=== PATIENT | female | born 2000 | race Caucasian/White ===

== ENCOUNTER 2020-04-01 20:23 | Inpatient (IN) | payer OTHER, MEDICAID ==
[~2020-04-01] VITALS: Ht 154.9 cm; Wt 63.6 kg
[2020-04-01] MEDS ORDERED: SODIUM CHLORIDE 0.9% 1,000 ML IVB ONE (20:44)
[2020-04-01] MEDS ORDERED: ONDANSETRON HCL 4 MG/2 ML VIAL IV ONE (20:45)
[2020-04-01] MEDS ORDERED: InsuLIN REG 1unit/0.01ml Soln (100units/ml) IV ONE (20:45)
[2020-04-01 21:03] LABS: Urine Bacteria FEW /hpf (None Seen); Urine Blood Negative /uL (Negative); Urine Mucus FEW (None Seen); Urine Specific Gravity 1.017 (1.001-1.035); Urine WBC 18 /hpf (0 - 5)
[2020-04-01 21:06] LABS: Basophils # (auto) 0.1 10 ^3/uL (0-0.2); Eosinophils # (auto) 0 10 ^3/uL (0-0.8); Monocytes # (auto) 0.4 10 ^3/uL (0-1.3)
[2020-04-01 21:08] LABS: Basophils % (auto) 0.9 % (0.0-2.0); Hematocrit 43.6 % (36.0-46.0); Mean Corpuscular Hgb Conc. 29.8 g/dL (32.0-36.0); Mean Corpuscular Volume 83.9 fL (80.0-100.0); Monocytes % (auto) 2.8 % (0.0-12.0); Neutrophils # (auto) 12.3 10 ^3/uL (1.6-8.6); Neutrophils % (auto) 89.3 % (37.0-80.0); Nucleated Red Blood Cells % 0.1 %; Platelet Count (auto) 275 10^3/uL (140-450); Red Blood Cells 5.19 10^6/uL (4.0-5.20); Red Cell Distribution Width 16.4 % (11.8-14.3); White Blood Cell 13.8 10^3/uL (4.4-10.8)
[2020-04-01] MEDS ORDERED: SODIUM BICARBONATE 8.4 % INJ 50ML VIAL IV ONE (21:15)
[2020-04-01] MEDS ORDERED: SODIUM BICARBONATE 50ML VIAL 50 ML in SOD CHL 0.45% 1,000 ML IV ONE (21:15)
[2020-04-01 21:22] LABS: INR 0.97 (0.9-1.15); Partial Thromboplastin Time 25.5 sec (23.64-32.05)
[2020-04-01 21:25] LABS: Alanine Aminotransferase 25 U/L (13-56); Albumin 3.8 g/dL (3.4-5.0); Amylase 41 U/L (25-115); Anion Gap 25 (5-15); Aspartate Aminotransferase 20 U/L (15-37); Calcium 9.1 mg/dL (8.5-10.1); Chloride 97 mmol/L (98-107); Lipase 31 U/L (73-393); Magnesium 2.4 mg/dL (1.6-2.6); Potassium 5.5 mmol/L (3.5-5.1); Sodium 129 mmol/L (136-145)
[2020-04-01 21:31] LABS: Alkaline Phosphatase 139 U/L (45-117); BUN/Creatinine Ratio 20.3; Bilirubin, Total 0.4 mg/dL (0.2-1.0); Blood Urea Nitrogen 24 mg/dL (7-18); GFR African American 76 mL/min; GFR Non-African American 63 mL/min
[2020-04-01] MEDS ORDERED: SODIUM CHLORIDE 0.9% 1,000 ML IV ONE (21:45)
[2020-04-01] MEDS ORDERED: cefTRIAXone 1GM/50ML D5W 50 ML IV ONE (21:45)
[2020-04-01 21:48] LABS: Carbon Dioxide 7 mmol/L (21-32)
[2020-04-01 21:49] LABS: Glucose 759 mg/dL (74-106)
[2020-04-01] MEDS ORDERED: InsuLIN R (HUMAN) 100 UNITS in SODIUM CHL 0.9% 99 ML IV SCH (22:12)
[2020-04-01] MEDS ORDERED: D5W/SOD CHL 0.45%/KCL 20MEQ 1,000 ML IV SCH (22:12)
[2020-04-01] MEDS ORDERED: SODIUM CHLORIDE 0.9% 1,000 ML IV SCH (22:12)
[2020-04-01 22:30] LABS: Lactic Acid w/Reflex 4.2 mmol/L (0.4-2.0)
[2020-04-01] MEDS: ACCU-CHEK COMFORT CURVE STRIP VI SCH ×2 (22:53→23:36)
[2020-04-02] MEDS ORDERED: NITROGLYCERIN 0.4 MG SL TAB SL PRN (00:15)
[2020-04-02] MEDS ORDERED: ONDANSETRON HCL 4 MG/2 ML VIAL IV PRN (00:15)
[2020-04-02] MEDS ORDERED: MORPHINE SULF INJ 2 MG/ML SYRINGE 1ML IV PRN (00:15)
[2020-04-02 01:02] LABS: Calcium 8.1 mg/dL (8.5-10.1); Potassium 3.6 mmol/L (3.5-5.1)
[2020-04-02 01:04] LABS: BUN/Creatinine Ratio 22.8
[2020-04-02] MEDS: ACCU-CHEK COMFORT CURVE STRIP VI SCH ×8 (01:05→21:34)
[2020-04-02] MEDS ORDERED: SODIUM CHLORIDE 0.9% 1,000 ML IV SCH ×3 (02:12→07:45)
[2020-04-02] MEDS ORDERED: ONDANSETRON HCL 4 MG/2 ML VIAL IV ONE (03:45)
[2020-04-02 07:26] LABS: BUN/Creatinine Ratio 21.4; Calcium 7.9 mg/dL (8.5-10.1); Potassium 3.8 mmol/L (3.5-5.1)
[2020-04-02] MEDS ORDERED: DEXTROSE (50%) 50ML SYRG IV PRN (07:45)
[2020-04-02] MEDS: InsuLIN REG 1unit/0.01ml Soln (100units/ml) SC SCH ×4 (08:06→21:35)
[2020-04-02 10:04] VITALS: BP 110/65
[2020-04-02 12:37] LABS: BUN/Creatinine Ratio 16.7; Calcium 8.3 mg/dL (8.5-10.1); Potassium 4.4 mmol/L (3.5-5.1)
[2020-04-02 12:39] LABS: Magnesium 2.4 mg/dL (1.6-2.6); Phosphorus 3.9 mg/dL (2.5-4.90)
[2020-04-02 13:00] VITALS: BP 110/54
[2020-04-02 13:19] LABS: Basophils # (auto) 0 10 ^3/uL (0-0.2); Eosinophils # (auto) 0 10 ^3/uL (0-0.8); Mean Corpuscular Hgb Conc. 31.2 g/dL (32.0-36.0); Monocytes # (auto) 0.9 10 ^3/uL (0-1.3); Neutrophils % (auto) 76.2 % (37.0-80.0)
[2020-04-02 13:22] LABS: Basophils % (auto) 0.2 % (0.0-2.0); Eosinophils % (auto) 0.1 % (0.0-7.0); Hematocrit 39.2 % (36.0-46.0); Hemoglobin 12.2 g/dL (12.2-16.2); Lymphocytes # (auto) 2.4 10 ^3/uL (0.4-5.4); Lymphocytes % (auto) 17.2 % (10.0-50.0); Mean Corpuscular Hemoglobin 24.7 pg (28.0-32.0); Mean Corpuscular Volume 79.1 fL (80.0-100.0); Monocytes % (auto) 6.3 % (0.0-12.0); Neutrophils # (auto) 10.7 10 ^3/uL (1.6-8.6); Platelet Count (auto) 299 10^3/uL (140-450); Red Blood Cells 4.96 10^6/uL (4.0-5.20); Red Cell Distribution Width 16.5 % (11.8-14.3)
[2020-04-02 15:45] LABS: BUN/Creatinine Ratio 14.7; Calcium 8.3 mg/dL (8.5-10.1); Potassium 4.5 mmol/L (3.5-5.1)
[2020-04-02 16:41] VITALS: BP 107/63
[2020-04-02] MEDS: SODIUM CHLORIDE 0.9% 1,000 ML IV SCH (17:02)
[2020-04-02] MEDS: INSULIN 70/30 1unit/0.01ml Susp (100units/ml) SC SCH (17:49)
[2020-04-02 18:09] LABS: Calcium 7.9 mg/dL (8.5-10.1)
[2020-04-02 18:12] LABS: BUN/Creatinine Ratio 14.7
[2020-04-02 21:48] VITALS: BP 124/66
[2020-04-03] MEDS: InsuLIN REG 1unit/0.01ml Soln (100units/ml) SC SCH ×4 (00:31→11:45)
[2020-04-03] MEDS: ACCU-CHEK COMFORT CURVE STRIP VI SCH ×4 (00:46→11:44)
[2020-04-03] MEDS: SODIUM CHLORIDE 0.9% 1,000 ML IV SCH ×2 (00:47→05:31)
[2020-04-03 05:20] VITALS: BP 105/57
[2020-04-03 06:04] LABS: Basophils # (auto) 0 10 ^3/uL (0-0.2); Eosinophils # (auto) 0.1 10 ^3/uL (0-0.8); Hemoglobin 11.6 g/dL (12.2-16.2); Monocytes # (auto) 0.5 10 ^3/uL (0-1.3); Nucleated Red Blood Cells % 0.1 %
[2020-04-03 06:07] LABS: Basophils % (auto) 0.4 % (0.0-2.0); Eosinophils % (auto) 0.9 % (0.0-7.0); Hematocrit 35.6 % (36.0-46.0); Lymphocytes # (auto) 2.5 10 ^3/uL (0.4-5.4); Lymphocytes % (auto) 44.4 % (10.0-50.0); Mean Corpuscular Hemoglobin 25.3 pg (28.0-32.0); Mean Corpuscular Hgb Conc. 32.6 g/dL (32.0-36.0); Mean Corpuscular Volume 77.8 fL (80.0-100.0); Neutrophils # (auto) 2.6 10 ^3/uL (1.6-8.6); Neutrophils % (auto) 46.3 % (37.0-80.0); Platelet Count (auto) 247 10^3/uL (140-450); Red Blood Cells 4.58 10^6/uL (4.0-5.20); Red Cell Distribution Width 16.5 % (11.8-14.3); White Blood Cell 5.7 10^3/uL (4.4-10.8)
[2020-04-03 06:27] LABS: Albumin 2.7 g/dL (3.4-5.0); BUN/Creatinine Ratio 14.3; Calcium 7.7 mg/dL (8.5-10.1); Potassium 3.4 mmol/L (3.5-5.1)
[2020-04-03 06:30] LABS: Bilirubin, Total 0.2 mg/dL (0.2-1.0)
[2020-04-03] MEDS: INSULIN 70/30 1unit/0.01ml Susp (100units/ml) SC SCH (08:00)
[2020-04-03 09:00] VITALS: BP 121/74
[2020-04-03] MEDS ORDERED: POTASSIUM CHL 20 Meq TABLET PO ONE (10:30)
[2020-04-03 13:00] VITALS: BP 102/64
== END 2020-04-03 15:00 | disposition home or self-care (01) | DRG 420 ==
LOC: EDBD 20:23 → ER 20:28 → TELE 20:29 → TELE-WESTW 04-02 09:26
PROVIDERS: ADMIT Nurse Practitioner; ATTEND Internal Medicine
DX: E10.10 Type 1 diabetes mellitus with ketoacidosis without coma (principal); E44.0 Moderate protein-calorie malnutrition; E86.0 Dehydration; N39.0 Urinary tract infection, site not specified; D72.829 Elevated white blood cell count, unspecified; Z96.41 Presence of insulin pump (external) (internal); Z88.1 Allergy status to other antibiotic agents
CPT/HCPCS: 36415; 36600; 74176; 76775; 80048; 80053; 81001; 82010; 82150; 82805; 82962; 83036; 83605; 83690; 83735; 84100; 84484; 84702; 85025; 85610; 85730; 87086; 93005; 96361; 96365; 96366; 96368; 96375; 96376; 99291; G0378; J0696; J1815; J2405

== ENCOUNTER 2021-07-22 14:03 | Inpatient (IN) | payer MEDICAID, OTHER ==
[~2021-07-22] VITALS: Ht 154.9 cm; Wt 54.0 kg
[2021-07-22] MEDS ORDERED: DEXTROSE (50%) 50ML SYRG IV PRN (14:30)
[2021-07-22] MEDS ORDERED: InsuLIN REG 1unit/0.01ml Soln (100units/ml) IV ONE (14:30)
[2021-07-22] MEDS ORDERED: SODIUM CHLORIDE 0.9% 1,000 ML IV ONE (14:30)
[2021-07-22] MEDS ORDERED: InsuLIN R (HUMAN) 100 UNITS in SODIUM CHL 0.9% 99 ML IV SCH (14:30)
[2021-07-22] MEDS ORDERED: INSULIN LANTUS (GLARGINE) 1 /0.01ml (100units/ml) SC ONE (14:30)
[2021-07-22 14:53] LABS: Eosinophils # (auto) 0 10 ^3/uL (0-0.8); Eosinophils % (auto) 0.2 % (0.0-7.0); Red Cell Distribution Width 14.1 % (11.8-14.3); White Blood Cell 7.5 10^3/uL (4.4-10.8)
[2021-07-22 14:56] LABS: Basophils # (auto) 0 10 ^3/uL (0-0.2); Basophils % (auto) 0.6 % (0.0-2.0); Hematocrit 35.7 % (36.0-46.0); Hemoglobin 11.9 g/dL (12.2-16.2); Lymphocytes # (auto) 1.3 10 ^3/uL (0.4-5.4); Lymphocytes % (auto) 17.7 % (10.0-50.0); Mean Corpuscular Hemoglobin 28.5 pg (28.0-32.0); Mean Corpuscular Hgb Conc. 33.2 g/dL (32.0-36.0); Mean Corpuscular Volume 85.9 fL (80.0-100.0); Monocytes # (auto) 0.3 10 ^3/uL (0-1.3); Monocytes % (auto) 4.3 % (0.0-12.0); Neutrophils # (auto) 5.8 10 ^3/uL (1.6-8.6); Neutrophils % (auto) 77.2 % (37.0-80.0); Red Blood Cells 4.15 10^6/uL (4.0-5.20)
[2021-07-22 15:08] LABS: Albumin 2.6 g/dL (3.4-5.0); Calcium 8.5 mg/dL (8.5-10.1); Potassium 4.4 mmol/L (3.5-5.1)
[2021-07-22 15:16] LABS: Bilirubin, Total 0.3 mg/dL (0.2-1.0); Total Protein 7.5 g/dL (6.4-8.2)
[2021-07-22] MEDS ORDERED: ONDANSETRON HCL 4 MG/2 ML VIAL IV ONE (16:15)
[2021-07-22] MEDS: ACCU-CHEK COMFORT CURVE STRIP VI SCH ×6 (16:30→22:39)
[2021-07-22] MEDS ORDERED: MORPHINE SULFATE INJECTION 2 MG/ML SYRG IV PRN (23:00)
[2021-07-22] MEDS ORDERED: MORPHINE SULFATE 4 MG/ML SYR/VIAL IV PRN (23:00)
[2021-07-22] MEDS ORDERED: NITROGLYCERIN 0.4 MG SL TAB SL PRN (23:00)
[2021-07-22] MEDS ORDERED: ONDANSETRON HCL 4 MG/2 ML VIAL IV PRN (23:00)
[2021-07-22] MEDS: D5W/SOD CHLO 0.9% 1,000 ML IV SCH (23:00)
[2021-07-23 00:04] LABS: BUN/Creatinine Ratio 8.1; Calcium 7.9 mg/dL (8.5-10.1); Potassium 3.3 mmol/L (3.5-5.1)
[2021-07-23] MEDS: ACCU-CHEK COMFORT CURVE STRIP VI SCH ×10 (00:19→16:24)
[2021-07-23] MEDS ORDERED: POTASSIUM CHL 20MEQ/100ML 100 ML IV ONE (01:00)
[2021-07-23] MEDS: D5W/SOD CHLO 0.9% 1,000 ML IV SCH (01:06)
[2021-07-23 02:33] LABS: Calcium 7.8 mg/dL (8.5-10.1); Potassium 3.2 mmol/L (3.5-5.1)
[2021-07-23 02:36] LABS: BUN/Creatinine Ratio 8.6
[2021-07-23 07:03] LABS: Potassium 3.8 mmol/L (3.5-5.1)
[2021-07-23 07:07] LABS: BUN/Creatinine Ratio 7.7; Calcium 8.2 mg/dL (8.5-10.1)
[2021-07-23] MEDS ORDERED: INSULIN LANTUS (GLARGINE) 1 /0.01ml (100units/ml) SC SCH (10:00)
[2021-07-23 10:56] LABS: Calcium 8.4 mg/dL (8.5-10.1); Potassium 3.6 mmol/L (3.5-5.1)
[2021-07-23 11:00] LABS: BUN/Creatinine Ratio 8.3
[2021-07-23] MEDS ORDERED: DEXTROSE (50%) 50ML SYRG IV PRN (11:15)
[2021-07-23] MEDS: InsuLIN REG 1unit/0.01ml Soln (100units/ml) SC SCH ×2 (12:00→16:25)
[2021-07-23] MEDS ORDERED: INSLANTI SC ×2 (13:04→18:11)
[2021-07-23] MEDS ORDERED: INSLISPI SC (13:04)
[2021-07-23 14:25] LABS: BUN/Creatinine Ratio 7.1; Calcium 8.3 mg/dL (8.5-10.1); Potassium 3.8 mmol/L (3.5-5.1)
[2021-07-23 17:18] VITALS: BP 108/64
[2021-07-23] MEDS ORDERED: INSU100I4 SC (18:11)
[2021-07-23] MEDS ORDERED: BLOO-200 XX (18:15)
[2021-07-23] MEDS ORDERED: [UNRECOGNIZED DRUG - CODE] XX (18:15)
[2021-07-23 18:37] LABS: BUN/Creatinine Ratio 9.3; Calcium 8.5 mg/dL (8.5-10.1); Potassium 3.5 mmol/L (3.5-5.1)
[2021-07-23] MEDS ORDERED: SODIUM CHLORIDE 0.9% 1,000 ML IV SCH (23:00)
[2021-07-24] MEDS ORDERED: INSULIN LANTUS (GLARGINE) 1 /0.01ml (100units/ml) SC SCH (10:00)
== END 2021-07-23 21:02 | disposition home or self-care (01) | DRG 420 ==
LOC: ER 14:03 → EDBD 14:03 → TELE 22:48 → CENTRAL 07-23 12:40
PROVIDERS: ADMIT Nurse Practitioner Family; ATTEND Nurse Practitioner Family
DX: E10.10 Type 1 diabetes mellitus with ketoacidosis without coma (principal); K52.9 Noninfective gastroenteritis and colitis, unspecified; Z20.822 Contact with and (suspected) exposure to COVID-19; Z79.4 Long term (current) use of insulin; Z88.1 Allergy status to other antibiotic agents; Z80.9 Family history of malignant neoplasm, unspecified; Z86.16 Personal history of COVID-19; Z87.440 Personal history of urinary (tract) infections
CPT/HCPCS: 36415; 36600; 71045; 80048; 80053; 81025; 82010; 82805; 82962; 85025; 87426; 93005; 96361; 96365; 96375; G0378; J1815; J2405; J3480

== ENCOUNTER 2021-09-11 14:37 | Emergency (ER) | payer MEDICAID ==
[~2021-09-11] VITALS: Ht 154.9 cm; Wt 55.3 kg
[~2021-09-11 14:37] MED LIST: BLOO-200 XX; INSLANTI SC; INSU100I4 SC; [UNRECOGNIZED DRUG - CODE] XX
[2021-09-11 14:38] VITALS: BP 145/98
[2021-09-11] MEDS ORDERED: SODIUM CHLORIDE 0.9% 1,000 ML IV ONE (15:15)
[2021-09-11 15:54] LABS: Basophils # (auto) 0.1 10 ^3/uL (0-0.2); Eosinophils # (auto) 0.1 10 ^3/uL (0-0.8); Neutrophils # (auto) 3.9 10 ^3/uL (1.6-8.6)
[2021-09-11 15:56] LABS: Basophils % (auto) 0.8 % (0.0-2.0); Eosinophils % (auto) 0.8 % (0.0-7.0); Hematocrit 34.9 % (36.0-46.0); Hemoglobin 11.2 g/dL (12.2-16.2); Lymphocytes # (auto) 2.5 10 ^3/uL (0.4-5.4); Lymphocytes % (auto) 36.2 % (10.0-50.0); Mean Corpuscular Hemoglobin 26.6 pg (28.0-32.0); Mean Corpuscular Hgb Conc. 32.2 g/dL (32.0-36.0); Mean Corpuscular Volume 82.7 fL (80.0-100.0); Monocytes # (auto) 0.3 10 ^3/uL (0-1.3); Neutrophils % (auto) 57.2 % (37.0-80.0); Nucleated Red Blood Cells % 0.3 %; Red Blood Cells 4.21 10^6/uL (4.0-5.20); Red Cell Distribution Width 13.8 % (11.8-14.3); White Blood Cell 6.9 10^3/uL (4.4-10.8)
[2021-09-11 16:12] LABS: Albumin 2.7 g/dL (3.4-5.0); Calcium 9.6 mg/dL (8.5-10.1); Potassium 3.1 mmol/L (3.5-5.1)
[2021-09-11 16:16] LABS: BUN/Creatinine Ratio 10.9; Bilirubin, Total 0.2 mg/dL (0.2-1.0); Total Protein 8.4 g/dL (6.4-8.2)
[2021-09-11] MEDS ORDERED: POTASSIUM CHL 20 Meq TABLET PO ONE (18:15)
== END 2021-09-11 19:25 | disposition home or self-care (01) ==
LOC: ER 14:37
DX: E11.65 Type 2 diabetes mellitus with hyperglycemia (principal); R11.2 Nausea with vomiting, unspecified; Z79.4 Long term (current) use of insulin; Z79.899 Other long term (current) drug therapy; Z88.1 Allergy status to other antibiotic agents
CPT/HCPCS: 36415; 80053; 82010; 85025; 93005

== ENCOUNTER 2023-04-11 05:50 | Inpatient (IN) | payer MEDICAID ==
[~2023-04-11] VITALS: Ht 154.9 cm; Wt 59.9 kg
[2023-04-11 06:59] LABS: Basophils # (auto) 0.1 10 ^3/uL (0-0.2); Basophils % (auto) 0.7 % (0.0-2.0); Eosinophils # (auto) 0 10 ^3/uL (0-0.8); Eosinophils % (auto) 0.2 % (0.0-7.0); Hematocrit 44.2 % (36.0-46.0); Lymphocytes # (auto) 2.1 10 ^3/uL (0.4-5.4); Lymphocytes % (auto) 19.9 % (10.0-50.0); Mean Corpuscular Hgb Conc. 31.7 g/dL (32.0-36.0); Mean Corpuscular Volume 88.4 fL (80.0-100.0); Monocytes # (auto) 0.3 10 ^3/uL (0-1.3); Monocytes % (auto) 2.9 % (0.0-12.0); Neutrophils # (auto) 8.1 10 ^3/uL (1.6-8.6); Neutrophils % (auto) 76.3 % (37.0-80.0); Red Blood Cells 5.01 10^6/uL (4.0-5.20); Red Cell Distribution Width 13.1 % (11.8-14.3); White Blood Cell 10.6 10^3/uL (4.4-10.8)
[2023-04-11 07:06] LABS: Calcium 8.7 mg/dL (8.5-10.1); Potassium 4.3 mmol/L (3.5-5.1)
[2023-04-11 07:14] LABS: BUN/Creatinine Ratio 10.5 (10.0-20.0); Bilirubin, Total 0.4 mg/dL (0.2-1.0); Total Protein 8.3 g/dL (6.4-8.2)
[2023-04-11] MEDS ORDERED: SODIUM CHLORIDE 0.9% 2,000 ML IV ONE (07:15)
[2023-04-11] MEDS ORDERED: DEXTROSE (50%) 50ML SYRG IV PRN (07:30)
[2023-04-11] MEDS ORDERED: InsuLIN R (HUMAN) 100 UNITS in SODIUM CHL 0.9% 99 ML IV SCH (07:30)
[2023-04-11] MEDS ORDERED: INSULIN LANTUS (GLARGINE) 1 /0.01ml (100units/ml) SC ONE (07:30)
[2023-04-11] MEDS: ACCU-CHEK COMFORT CURVE STRIP VI SCH ×9 (08:09→19:30)
[2023-04-11] MEDS ORDERED: ONDANSETRON HCL 4 MG/2 ML VIAL IV ONE (08:30)
[2023-04-11 08:51] LABS: Magnesium 2.6 mg/dL (1.6-2.6); Phosphorus 4.4 mg/dL (2.5-4.90)
[2023-04-11] MEDS: SODIUM CHLORIDE 0.9% 1,000 ML IV SCH ×6 (09:00→20:22)
[2023-04-11] MEDS ORDERED: SODIUM BICARBONATE 50ML VIAL 50 ML in D5W 5% 1,000 ML IV ONE (12:30)
[2023-04-11] MEDS ORDERED: PANTOPRAZOLE 40 MG/10 ML VIAL INJ IV ONE (13:00)
[2023-04-11] MEDS: ONDANSETRON HCL 4 MG/2 ML VIAL IV PRN ×2 (13:33→20:22)
[2023-04-11 13:55] LABS: BUN/Creatinine Ratio 9.8 (10.0-20.0); Calcium 7.4 mg/dL (8.5-10.1); Potassium 3.7 mmol/L (3.5-5.1)
[2023-04-11 18:24] LABS: Urine Bacteria FEW /hpf (None Seen); Urine Blood Negative /uL (Negative); Urine Mucus FEW (None Seen); Urine Specific Gravity 1.011 (1.001-1.035); Urine WBC 5 /hpf (0 - 5)
[2023-04-11 19:33] LABS: BUN/Creatinine Ratio 8.7 (10.0-20.0); Calcium 7.5 mg/dL (8.5-10.1); Potassium 3.2 mmol/L (3.5-5.1)
[2023-04-11] MEDS ORDERED: cefTRIAXone 1GM/50ML D5W 50 ML IV ONE ×2 (21:30→21:45)
[2023-04-11] MEDS ORDERED: InsuLIN REG 1unit/0.01ml Soln (100units/ml) SC ONE (22:00)
[2023-04-11] MEDS ORDERED: ACCU-CHEK COMFORT CURVE STRIP VI ONE (22:00)
[2023-04-11 22:31] VITALS: BP 127/79
[2023-04-12 01:18] LABS: BUN/Creatinine Ratio 6.3 (10.0-20.0); Calcium 7.8 mg/dL (8.5-10.1)
[2023-04-12] MEDS: SODIUM CHLORIDE 0.9% 1,000 ML IV SCH ×3 (02:50→16:10)
[2023-04-12] MEDS: ONDANSETRON HCL 4 MG/2 ML VIAL IV PRN ×2 (02:51→06:57)
[2023-04-12 05:00] VITALS: BP 108/63
[2023-04-12] MEDS ORDERED: ACETAMINOPHEN 325 MG TAB PO PRN (05:30)
[2023-04-12] MEDS ORDERED: DEXTROSE (50%) 50ML SYRG IV PRN (05:30)
[2023-04-12] MEDS ORDERED: POTASSIUM CHL 20 Meq TABLET PO ONE (05:30)
[2023-04-12 05:45] LABS: Basophils # (auto) 0 10 ^3/uL (0-0.2); Basophils % (auto) 0.2 % (0.0-2.0); Eosinophils # (auto) 0 10 ^3/uL (0-0.8); Eosinophils % (auto) 0.4 % (0.0-7.0); Hemoglobin 11.5 g/dL (12.2-16.2); Lymphocytes # (auto) 1.4 10 ^3/uL (0.4-5.4); Mean Corpuscular Hemoglobin 28.3 pg (28.0-32.0); Mean Corpuscular Hgb Conc. 33.7 g/dL (32.0-36.0); Mean Corpuscular Volume 83.9 fL (80.0-100.0); Monocytes # (auto) 0.6 10 ^3/uL (0-1.3); Monocytes % (auto) 6.6 % (0.0-12.0); Neutrophils # (auto) 7.4 10 ^3/uL (1.6-8.6); Neutrophils % (auto) 77.8 % (37.0-80.0); Nucleated Red Blood Cells % 0.1 %; Red Blood Cells 4.06 10^6/uL (4.0-5.20); Red Cell Distribution Width 13.1 % (11.8-14.3); White Blood Cell 9.5 10^3/uL (4.4-10.8)
[2023-04-12 06:03] LABS: Calcium 7.7 mg/dL (8.5-10.1)
[2023-04-12] MEDS: ACCU-CHEK COMFORT CURVE STRIP VI SCH ×3 (06:22→17:00)
[2023-04-12] MEDS: InsuLIN REG 1unit/0.01ml Soln (100units/ml) SC SCH ×3 (06:33→17:00)
[2023-04-12 06:59] LABS: Potassium 2.9 mmol/L (3.5-5.1)
[2023-04-12 08:00] VITALS: BP 108/72
[2023-04-12 09:00] VITALS: BP 124/75
[2023-04-12] MEDS ORDERED: cefTRIAXone 1GM/50ML D5W 50 ML IV SCH (09:00)
[2023-04-12] MEDS ORDERED: PANTOPRAZOLE 40 MG/10 ML VIAL INJ IV SCH (10:00)
[2023-04-12] MEDS ORDERED: INSULIN LANTUS (GLARGINE) 1 /0.01ml (100units/ml) SC SCH (10:00)
[2023-04-12 13:00] VITALS: BP 108/72
[2023-04-12 13:38] LABS: Hepatitis C Antibody Negative (Negative)
[2023-04-12 17:00] VITALS: BP 119/76
[2023-04-12] MEDS ORDERED: INSUINJ37 SC (17:18)
[2023-04-12] MEDS ORDERED: BLOO-200 XX (17:18)
[2023-04-12] MEDS ORDERED: INSU100I4 SC ×2 (17:18→17:19)
[2023-04-12] MEDS ORDERED: [UNRECOGNIZED DRUG - CODE] XX (17:18)
[2023-04-12 17:51] VITALS: BP 119/76
== END 2023-04-12 19:00 | disposition home or self-care (01) | DRG 420 ==
LOC: ER 05:50 → TELE 12:24 → TELE-EAST 22:07
PROVIDERS: ADMIT Registered Nurse; ATTEND Internal Medicine
DX: E10.10 Type 1 diabetes mellitus with ketoacidosis without coma (principal); Z79.4 Long term (current) use of insulin; Z88.0 Allergy status to penicillin
CPT/HCPCS: 36415; 36600; 80048; 80053; 81001; 82010; 82805; 82962; 83735; 83930; 84100; 85025; 86803; 87340; 96365; 96372; 96375; 99291; C9113; G0378; J0696; J1815; J2405